=== PATIENT | female | born 1995 | race Two or more races ===

== ENCOUNTER 2017-06-05 10:35 | Emergency (ER) | payer OTHER ==
[2017-06-05 10:42] VITALS: TEMP 97.5
--- NOTE | 2017-06-05 11:16 | EDPHY ---
General Narrative: CHIEF COMPLAINT: Possible C diff HISTORY OF PRESENT ILLNESS: Patient complains of possible C difficile infection. She reports bloody mucus bowel movements that started last night. This is consistent with previous episodes of C difficile colitis. First episode was the day after 2016. She was tested at outside facility and diagnosed with C difficile colitis. She was treated with p.o. Flagyl. She felt well until April 13, when the symptoms returned. At that time she had worsening symptoms with pain, fever and watery diarrhea. She was again diagnosed with C difficile colitis by stool sample. She was treated with p. o. vancomycin at the time. This was 4 times daily for 20 days, ending on May 05. She was feeling well until last night when she again developed bloody, mucousy stool. No watery diarrhea. No abdominal pain. No fever. No chills. No flank pain. No vomiting. Minimal complaints associated with this, but she is concerned due to previous infections. REVIEW OF SYSTEMS: Ten systems reviewed and are negative unless otherwise noted in the HPI PCP: No PCP SPECIALISTS: Dr. Stapleton, GI PAST MEDICAL HISTORY: C difficile colitis x2 PAST SURGICAL HISTORY: No recent surgeries. No endoscopies SOCIAL HISTORY: Nonsmoker. [employer] student. Works as a pharmacy helper, planning for Pharmacy school. Originally from [place]. FAMILY HISTORY: Noncontributory EXAMINATION General Appearance: Alert, no distress. Well-nourished. Head: normocephalic, atraumatic Eyes: Pupils equal and round, no conjunctival pallor or injection ENT, Mouth: Mucous membranes moist Neck: Normal inspection, supple, non-tender Respiratory: Lungs are clear to auscultation Cardiovascular: Regular rate and rhythm. No murmur. Gastrointestinal: Abdomen is soft and nontender. Bowel sounds symmetric. No tympany. No rigidity. No guarding. Benign abdominal examination Neurological: A&O, nonfocal, normal gait Skin: Warm and dry, no rash no petechiae or purpura Extremities: Nontender, no pedal edema Psychiatric: Mood and affect normal DIFFERENTIAL DIAGNOSES: Including but not limited to C difficile colitis, gastroenteritis, enteritis, inflammatory bowel MDM: 10:55 a.m. Stool with blood and mucus present since last night. This is consistent with previous diagnosis of C difficile colitis for the patient. She has no abdominal pain but does have some discomfort and hyperactive bowel sounds. Her abdominal exam is benign. Her vital signs are well within normal limits. She is resting comfortably in no acute distress. I do not feel she warrants any imaging at this time, but I have ordered laboratory studies including the GI pathogen panel. 11:30 a.m.. Notified by RN. Patient had a near vagal response with IV placement. I have re -evaluated the patient. She is awake and alert. She is sitting up in bed, conversing appropriately. 12:30 p.m. Patient re-evaluated. Resting comfortably. Serum blood test are negative. GI pathogen panel is pending. Her parents are now bedside as well 1:20 p.m. GI Pathogen panel results are positive for C diff. I have re-evaluated this time. We discussed the positive result and the need to treat. We had a very lengthy discussion regarding symptomatic care, close follow-up with GI, close follow-up with primary care physician and ED precautions. I have answered her questions and questions of her parents at bedside. I do not feel she needs any imaging or further test at this time. She is tolerating intake by mouth with no vomiting. I do feel she is stable for discharge home at this time. SUPERVISION: Patient was independently examined, but I discussed the case with my secondary supervising physician Dr. Juarez - History Smoking Status: Never smoked - Objective Vital Signs: Initial Vital Signs Temperature (C) 97.5 F 06/05/17 10:38 Heart Rate 97 06/05/17 10:38 Respiratory Rate 18 06/05/17 10:38 Blood Pressure 99/77 L 06/05/17 10:38 O2 Sat (%) 96 06/05/17 10:38 O2 Delivery Mode Room Air Allergies/Adverse Reactions: Sulfa (Sulfonamide Antibiotics) Allergy (Severe, Verified 06/05/17 10:37) Rash Home Medications: Medication Instructions Recorded Albuterol 08/06/14 Michelle-D 12 Hour Tablet 08/06/14 Fluconazole [Diflucan (*)] 150 mg PO ONCE #2 tab 06/05/17 Vancomycin [Vancomycin (*)] 125 mg PO AD #70 cap 06/05/17 oxyCODONE HCL/ACETAMINOPHEN 1 each PO Q4-6PRN PRN #13 tablet 06/05/17 [Percocet 5-325 mg Tablet] Laboratory Results: Laboratory Results 06/05/17 11:15 06/05/17 11:15 06/05/17 06/05/17 06/05/17 11:15 11:15 11:15 WBC 6.17 10^3/uL 10^3/uL (3.80-9.50) RBC 5.26 10^6/uL 10^6/uL (4.18-5.33) Hgb 15.3 g/dL g/dL (12.6-16.3) Hct 46.6 % % (38.0-47.0) MCV 88.6 fL fL (81.5-99.8) MCH 29.1 pg pg (27.9-34.1) MCHC 32.8 g/dL g/dL (32.4-36.7) RDW 12.6 % % (11.5-15.2) Plt Count 176 10^3/uL 10^3/uL (150-400) MPV 10.8 fL fL (8.7-11.7) Neut % (Auto) 47.9 % % (39.3-74.2) Lymph % (Auto) 41.3 % % (15.0-45.0) [place] % (Auto) 4.9 % % (4.5-13.0) Eos % (Auto) 4.7 % % (0.6-7.6) Baso % (Auto) 1.0 % % (0.3-1.7) Nucleat RBC Rel Count 0.0 % % (0.0-0.2) Absolute Neuts (auto) 2.96 10^3/uL 10^3/uL (1.70-6.50) Absolute Lymphs (auto) 2.55 10^3/uL 10^3/uL (1.00-3.00) Absolute Monos (auto) 0.30 10^3/uL 10^3/uL (0.30-0.80) Absolute Eos (auto) 0.29 10^3/uL 10^3/uL (0.03-0.40) Absolute Basos (auto) 0.06 10^3/uL 10^3/uL (0.02-0.10) Absolute Nucleated RBC 0.00 10^3/uL 10^3/uL (0-0.01) Immature Gran % 0.2 % % (0.0-1.1) Immature Gran # 0.01 10^3/uL 10^3/uL (0.00-0.10) Sodium 144 mEq/L mEq/L (135-145) Potassium 4.6 mEq/L mEq/L (3.5-5.2) Chloride 107 mEq/L mEq/L (97-110) Carbon Dioxide 18 mEq/l L mEq/l (22-31) Anion Gap 19 mEq/L H mEq/L (8-16) BUN 16 mg/dL mg/dL (7-23) Creatinine 0.8 mg/dL mg/dL (0.6-1.0) Estimated GFR > 60 Glucose 85 mg/dL mg/dL (70-100) Calcium 10.1 mg/dL mg/dL (8.5-10.4) Lipase 99 IU/L IU/L (23-300) Beta HCG, Qual NEGATIVE Microbiology Results: MICROBIOLOGY 06/05/17 11:15 Stool Gastrointestinal Tract Panel (PCR) - Final Clostridium Difficile Detected Departure - Departure Disposition: Home, Routine, Self-Care Clinical Impression: C. difficile diarrhea Condition: Good Instructions: Oxycodone/Acetaminophen (By mouth), Fluconazole (By mouth), Vancomycin (By mouth), Clostridium Difficile Infection (ED) Additional Instructions: 1. Vancomycin extended dosing as discussed due to 2nd recurrence 2. Follow up with your established primary care physician and GI physician 3. Contact the on-call GI physician if needed 4. ED precautions for any worsening diarrhea, fever, abdominal pain or difficulty with intake by mouth Referrals: [facility] [Other] - As per Instructions Stef Guzman MD [Medical Doctor] - As per Instructions Prescriptions: Fluconazole [Diflucan (*)] 150 mg PO ONCE #2 tab oxyCODONE HCL/ACETAMINOPHEN [Percocet 5-325 mg Tablet] 1 each PO Q4-6PRN PRN # 13 tablet PRN Reason: Pain, Breakthrough Vancomycin [Vancomycin (*)] 125 mg PO AD #70 cap
[2017-06-05 11:34] LABS: PLATELET COUNT 176 10^3/uL (150-400)
[2017-06-05 14:00] VITALS: BP 108/74; PULSE 89; RESP 16; O2SAT 95
== END 2017-06-05 14:00 | disposition home or self-care (01) ==
DX: A04.72 Enterocolitis due to Clostridium difficile, not specified as recurrent (principal); Z88.2 Allergy status to sulfonamides